=== PATIENT | male | born 1990 | race African-American/Black ===

== ENCOUNTER → 2016-09-19 | Outpatient (CLI) | payer OTHER ==
[~2016-09-19] MED LIST: GASTROGRAFIN SOLUTION 30ML (Q9963) As Ordered ONE; ISOVUE-370 76% 100ML VIAL (Q9967) As Ordered ONE
--- NOTE | 2016-09-19 19:06 | REP ---
CT ABDOMEN AND PELVIS WITHOUT AND WITH CONTRAST: 09/19/2016: Clinical history. Right lower quadrant pain, status post appendectomy. Technique oral Gastrografin mixture 10 mL in 290 mL of flavored water given with scanning through the abdomen pelvis. A bolus of 100 mL of Isovue-370 given and scanning through the abdomen pelvis repeated with coronal and sagittal reconstructions then performed. No prior study. Findings: CT abdomen: The lung bases are clear. The heart is not enlarged. There is no pericardial thickening or effusion and no hiatal hernia. The liver, spleen, stomach and adrenal glands are normal. Gallbladder is contracted. The stomach is distended with retained food. It appears to be full meal. Pancreas is unremarkable. Kidneys show function without obstruction, stone, mass or cyst. No perinephric fluid. No hydronephrosis or hydroureter. No ureteral stone. The aorta is normal. No periaortic or other retroperitoneal pathologic sized lymphadenopathy. Small bowel loops are fluid or contrast filled but not abnormally dilated. Colon is noted with stool and gas contiguous from cecum to rectosigmoid. I see no ventral hernia. The bone windows show lumbar and lower thoracic spine and ribs without any acute finding. CT pelvis: The bony hips, pelvis, sacrum, SI joints, iliac wings, pubic rami, symphysis pubis were all unremarkable. Distal ureters are not dilated and there is no ureteral stone. Bladder is only minimally filled but there is no stone, wall thickening or mass. Distal left colon, sigmoid and rectum with stool but no colitis or diverticulitis. Small bowel loops in the pelvis unremarkable. No ventral or inguinal hernia. Impression: 1. Mild to moderate constipation without evidence of colitis, diverticulitis, abscess, mass or fluid collection. No adenopathy or other acute finding. Bones intact. Signed by Luis Alberto Lopez MD 09/19/2016 07:58 P
== END ==
LOC: M RAD 15:22
PROVIDERS: ATTEND Physician Assistant
DX: R10.31 Right lower quadrant pain (principal); K59.00 Constipation, unspecified
CPT/HCPCS: 74178; Q9963; Q9967